=== PATIENT | female | born 1965 | race American Indian/Alaskan Native ===

== ENCOUNTER 2019-04-16 22:16 | Emergency (ER) | payer MEDICARE ==
[~2019-04-16 22:16] MED LIST: CALCIUM CHLORIDE 1,000 MG/10 ML SYRINGE IV ONE; EPINEPHrine 1:10,000 1 MG/10 ML SYRINGE ONE; SODIUM BICARB 8.4% 50 MEQ/50 ML SYRINGE IV ONE
--- NOTE | 2019-04-16 22:50 | Emergency Department Report ---
ED CPR HPI - General Stated Complaint: CARDIAC ARREST Time Seen by Provider: 04/16/19 22:37 Source: EMS Mode of arrival: Stretcher Limitations: Altered Mental Status, Physical Limitation - History of Present Illness Initial Comments: Patient is a 53-year-old female presents emergency room via EMS for cardiac arrest. Patient initially called EMS for respiratory distress. EMS states that the patient can agitated then unresponsive just prior to arrival and lost her pulse is a pulled up to the hospital. Patient is being bagged with a BVM by EMS. Copious amounts of frothy sputum noted. MD Complaint: stopped breathing Place: other Bystander CPR Performed: No AED Applied by Bystander/Accounting Specialist: Yes Shock Advised: No Initial Findings in the Field: good pulses ROSC in the Field: No Associated Injuries: No Associated Symptoms: shortness of breath Treatments Prior to Arrival: BMV, chest compressions - Related Data Previous Rx's Medication Instructions Recorded Last Taken Type Apixaban [Eliquis] 5 mg PO BID #60 tablet 06/03/17 Unknown Rx AtorvaSTATin [Lipitor] 40 mg PO QHS #30 tablet 06/03/17 Unknown Rx Esomeprazole Magnesium [Nexium] 40 mg PO DAILY #30 capsule. 06/03/17 Unknown Rx Furosemide [Lasix TAB] 80 mg PO DAILY #30 tablet 06/03/17 Unknown Rx Metoprolol Tartrate 50 mg PO BID #60 tablet 06/03/17 Unknown Rx cloNIDine [Catapres] 0.1 mg PO TID #90 tablet 06/03/17 Unknown Rx Allergies Allergy/AdvReac Type Severity Reaction Status Date / Time Iodine and Iodide Containing Allergy Angioedema Verified 05/30/17 13:23 Produc vancomycin Allergy Nausea Verified 05/30/17 13:23 ED Review of Systems ROS: Stated complaint: CARDIAC ARREST Other details as noted in HPI Comment: Unobtainable due to pts medical conditions ED Past Medical Hx - Past Medical History Previous Medical History?: Yes Hx Hypertension: Yes Hx CVA: Yes (intracranial hemorrhage 2010) Hx Heart Attack/AMI: Yes Hx Congestive Heart Failure: No Hx Diabetes: No Hx Asthma: No Hx COPD: No Hx Dementia: No Additional medical history: Systemic scleroderma - Surgical History Past Surgical History?: Yes Hx Coronary Stent: Yes Additional Surgical History: Splenectomy - Family History Family history: no significant - Social History Smoking Status: Never Smoker - Medications Home Medications: Home Medications Medication Instructions Recorded Confirmed Last Taken Type Apixaban [Eliquis] 5 mg PO BID #60 tablet 06/03/17 Unknown Rx AtorvaSTATin [Lipitor] 40 mg PO QHS #30 tablet 06/03/17 Unknown Rx Esomeprazole Magnesium [Nexium] 40 mg PO DAILY #30 capsule. 06/03/17 Unknown Rx Furosemide [Lasix TAB] 80 mg PO DAILY #30 tablet 06/03/17 Unknown Rx Metoprolol Tartrate 50 mg PO BID #60 tablet 06/03/17 Unknown Rx cloNIDine [Catapres] 0.1 mg PO TID #90 tablet 06/03/17 Unknown Rx ED Physical Exam - General Limitations: Altered Mental Status, Physical Limitation General appearance: other - Head Head exam: Present: atraumatic, normocephalic - Eye Pupils: Present: other (pupils fixed and dilated) - ENT ENT exam: Present: other ( Copious amounts of frothy sputum noted in the oral cavity) - Respiratory Respiratory exam: Present: other - Cardiovascular Cardiovascular Exam: Present: other (no pulse) - GI/Abdominal GI/Abdominal exam: Present: soft - Rectal Rectal exam: Present: deferred - Extremities Exam Extremities exam: Present: normal inspection - Neurological Exam Neurological exam: Present: altered - Skin Skin exam: Present: warm, dry, intact, normal color. Absent: rash ED Course - Reevaluation(s) Reevaluation #1: Patient arrived via EMS. Report received from EMS. Patient in cardiac arrest. CPR initiated. code ran in accordance with ACLS guidelines. Patient intubated. See procedure note. IV established 04/16/19 22:14 Reevaluation #2: Resuscitation efforts terminated due to no signs of life. No pulse noted. No cardiac motion noted. No respiratory motion. Pupils fixed and dilated. see code note. Family support will be given once the family arrives. 04/16/19 22:24 Reevaluation #3: Family meeting done. Family support given 04/16/19 23:06 - Intubation Time Out Performed: No Sedative: none Laryngoscope: fiberoptic video scope Size: 4 Assist Device Used: fiberoptic device ET Tube Size: 7.5 Tube Secured Depth (cm): 22 Tube Secured Location: lips Tube Placement Confirmation: visualized tube passing t, equal breath sounds bilat, no breath sounds over epi, confirmation by capnometr Patient Tolerated Procedure: well, no complications Critical Care Time: Yes Critical care time in (mins) excluding proc time.: 35 Critical care attestation.: If time is entered above; I have spent that time in minutes in the direct care of this critically ill patient, excluding procedure time. Critical Care Time: 35 minutes ED Disposition Clinical Impression: Cardiac arrest, Respiratory arrest Disposition: DC-20 Is pt being admited?: No Does the pt Need Aspirin: No Condition: Undetermined Time of Disposition: 22:37
== END 2019-04-17 05:01 ==
LOC: ED 22:16
DX: I46.9 Cardiac arrest, cause unspecified (principal); I10 Essential (primary) hypertension; Z86.73 Personal history of transient ischemic attack (TIA), and cerebral infarction without residual deficits; Z98.890 Other specified postprocedural states; Z79.899 Other long term (current) drug therapy; Z88.1 Allergy status to other antibiotic agents; Z88.8 Allergy status to other drugs, medicaments and biological substances
CPT/HCPCS: 31500; 92950; 99291; J0171